=== PATIENT | female | born 1990 | race Caucasian/White ===

== ENCOUNTER 2022-10-05 21:44 | Emergency (ER) | payer OTHER ==
[~2022-10-05] VITALS: Ht 165.1 cm; Wt 59.0 kg
--- NOTE | 2022-10-05 22:03 | NUR ---
COVID SWAB COLLECTED
--- NOTE | 2022-10-05 22:05 | NUR ---
TO ER BED 14, [employer] FOR MED CLEARANCE PLACED ON 5150 HOLD BY [employer] HX BIPOLAR ADMITS TO HALLUCINATIONS, OFF MEDS. DENIES SI/HI. AAOX4, CALM AND COOPERATIVE BREATHING EVEN AND NON LABORED, CONNECTED TO MONITOR.
--- NOTE | 2022-10-05 22:29 | NUR ---
URINE SAMPLE COLLECTED
[2022-10-05 22:41] LABS: BASOPHILS % (AUTO) 0.3 % (0.0-2.0); EOSINOPHILS % (AUTO) 0.5 % (0.0-6.0); HEMATOCRIT 43 % (33-45); HEMOGLOBIN 14.1 g/dL (11.5-14.8); LYMPHOCYTES # (AUTO) 2.6 K/uL (0.8-4.8); LYMPHOCYTES % (AUTO) 19.2 % (20.0-44.0); MEAN CORPUSCULAR HGB CONC 33 g/dl (31.0-36.0); MEAN CORPUSCULAR VOLUME 90 fL (82-100); MONOCYTES # (AUTO) 0.9 K/uL (0.1-1.30); MONOCYTES % (AUTO) 6.6 % (2.0-12.0); NEUTROPHILS # (AUTO) 9.8 K/uL (1.8-8.9); NEUTROPHILS % (AUTO) 73.4 % (43.0-81.0); PLATELET COUNT (AUTO) 272 K/uL (150-450); RED BLOOD CELL COUNT(AUTO) 4.74 MIL/uL (4.0-5.2); WHITE BLOOD COUNT (AUTO) 13.4 K/uL (4.3-11.0)
[2022-10-05 23:04] LABS: BILIRUBIN,URINE NEGATIVE (NEGATIVE); COLOR,URINE YELLOW (YELLOW); LEUKOCYTE ESTERASE ,URINE NEGATIVE (NEGATIVE); NITRITE, URINE NEGATIVE (NEGATIVE); PROTEIN,URINE NEGATIVE (NEGATIVE); UGLUCOSE NEGATIVE (NEGATIVE); UROBILINOGEN,URINE 0.2 EU/dL (0.2)
[2022-10-05 23:41] LABS: ALANINE AMINOTRANSFERASE 34 U/L (12-78); ALBUMIN 3.6 g/dL (3.4-5.0); ALCOHOL, BLOOD < 3 mg/dL (0-0); ALKALINE PHOSPHATASE 98 U/L (46-116); ASPARTATE AMINOTRANSFERASE 25 U/L (15-37); BILIRUBIN,TOTAL 0.2 mg/dL (0.2-1.0); CALCIUM, SERUM 8.9 mg/dL (8.5-10.1); CHLORIDE 106 mmol/L (98-107); CREATININE 0.9 mg/dL (0.6-1.3); GLUCOSE 108 mg/dL (74-106); POTASSIUM 3.8 mmol/L (3.5-5.1); SODIUM SERUM 140 mmol/L (136-145); TOTAL PROTEIN, SERUM 7.1 g/dL (6.4-8.2); UREA NITROGEN, BLOOD 14 mg/dL (7-18)
[2022-10-05 23:50] LABS: BACTERIA,URINE Rare /HPF (None Seen); SQUAMOUS EPITHELIAL CELL,UR Few /HPF (None Seen); WBC,URINE 0-2 /HPF (0-3)
[2022-10-06 00:01] LABS: CARBON DIOXIDE 22 mmol/L (21-32)
[2022-10-06 00:17] LABS: ACETAMINOPHEN 0 ug/ml (10-30)
[2022-10-06] MEDS ORDERED: OXCARBAZEPINE 150 MG TABLET PO ONE (00:30)
[2022-10-06] MEDS ORDERED: OXCARBAZEPINE 150 MG TABLET ONE ×2 (00:36→11:31)
[2022-10-06] MEDS ORDERED: IBUPROFEN 600 MG TABLET ONE (07:52)
[2022-10-06] MEDS ORDERED: IBUPROFEN 600 MG TABLET PO ONE (08:00)
--- NOTE | 2022-10-06 08:00 | NUR ---
PT IN BED RESTING, AWAKE AND VERBALLY RESPONSIVE, NOT IN ACUTE DISTRESS. SITTER AT BEDSIDE.
--- NOTE | 2022-10-06 11:15 | NUR ---
DR. RAMOS AT BEDSIDE.
[2022-10-06] MEDS ORDERED: OXCARBAZEPINE 150 MG TABLET PO SCH (11:30)
[2022-10-06] MEDS ORDERED: BENZTROPINE MESYLATE (1 MG) 1 MG TABLET ONE (11:30)
[2022-10-06] MEDS ORDERED: risperiDONE 0.25 MG TABLET PO ONE (11:31)
--- NOTE | 2022-10-06 11:39 | NUR ---
MEDS GIVEN INDICATED, [facility] BY PT.
--- NOTE | 2022-10-06 12:15 | NUR ---
FAXED CLINICALS TO [facility].
--- NOTE | 2022-10-06 12:30 | NUR ---
CALLED [facility] INTAKE. NO BEDS AVAILABLE AT THIS TIME.
--- NOTE | 2022-10-06 12:38 | NUR ---
FAXED CLINICALS TO [facility]
--- NOTE | 2022-10-06 12:48 | NUR ---
NO BEDS AVAILABLE AT [facility]
[2022-10-06] MEDS ORDERED: OXCA300T4 PO (13:28)
--- NOTE | 2022-10-06 14:00 | NUR ---
DR DANILO RODRIGUEZ SEEN PT AT BEDSIDE; 5150 HOLD WAS BROKEN.
--- NOTE | 2022-10-06 14:02 | NUR ---
Pt a/o x4, verbally responsive and able to make needs known. Denies hi/si at this time. Homeless wairver and resources provided to pt and accepted at this time; homeless waiver not signed by pt. Tap card provided to ot. Patient discharged to home/homeless in stable condition. Written and verbal after care instructions given. Patient verbalizes understanding of instruction.
[2022-10-06 14:07] VITALS: BP 133/70
[2022-10-06] MEDS ORDERED: BENZTROPINE MESYLATE (1 MG) 1 MG TABLET PO SCH (17:00)
[2022-10-06] MEDS ORDERED: risperiDONE 0.25 MG TABLET PO SCH (17:00)
== END 2022-10-06 14:08 | disposition home or self-care (01) ==
LOC: ER 21:48
DX: F31.2 Bipolar disorder, current episode manic severe with psychotic features (principal); F22 Delusional disorders; Z20.822 Contact with and (suspected) exposure to COVID-19; Z59.00 Homelessness unspecified
CPT/HCPCS: 99285; 85025; 80048; 80076; 81001; 36415; 87426; 80143; 80320; 80307; 84703; C9803; G0480